=== PATIENT | female | born 1955 | race Caucasian/White ===

== ENCOUNTER → 2017-10-25 | Outpatient (CLI) | payer BC | END | disposition home or self-care (01) | LOC: OIH 13:53 | PROVIDERS: ATTEND Family Medicine | DX: J44.9 Chronic obstructive pulmonary disease, unspecified (principal); M47.895 Other spondylosis, thoracolumbar region | CPT/HCPCS: 71046 ==

== ENCOUNTER → 2021-04-08 | Outpatient (CLI) | payer OTHER | END | disposition home or self-care (01) | LOC: OIH 09:59 | PROVIDERS: ATTEND Family Medicine | DX: R07.81 Pleurodynia (principal) | CPT/HCPCS: 71100 ==

== ENCOUNTER → 2021-11-06 | Outpatient (CLI) | payer MEDICARE ==
[~2021-11-06] MED LIST: REGADENOSON 0.4 MG/5 ML PF SYG IVP SCH
== END | disposition home or self-care (01) ==
LOC: RAH 08:47
PROVIDERS: ATTEND Internal Medicine Interventional Cardiology
DX: I42.0 Dilated cardiomyopathy (principal); R06.02 Shortness of breath
CPT/HCPCS: 78452; 96374; 93017; J2785; A9500 ×2

== ENCOUNTER → 2022-09-09 | Outpatient (CLI) | payer MEDICARE | END | disposition home or self-care (01) | LOC: RAH 13:44 | PROVIDERS: ATTEND Family Medicine | DX: I26.99 Other pulmonary embolism without acute cor pulmonale (principal); J44.9 Chronic obstructive pulmonary disease, unspecified; R06.02 Shortness of breath; Z86.16 Personal history of COVID-19 | CPT/HCPCS: 71250 ==

== ENCOUNTER → 2023-03-01 | Outpatient (CLI) | payer MEDICARE | END | disposition home or self-care (01) | LOC: OIH 10:21 | PROVIDERS: ATTEND Internal Medicine | DX: M48.07 Spinal stenosis, lumbosacral region (principal); M48.56XA Collapsed vertebra, not elsewhere classified, lumbar region, initial encounter for fracture; M47.26 Other spondylosis with radiculopathy, lumbar region; M47.24 Other spondylosis with radiculopathy, thoracic region | CPT/HCPCS: 72070; 72100 ==

== ENCOUNTER → 2024-02-13 | Outpatient (CLI) | payer MEDICARE | END | disposition home or self-care (01) | LOC: RAH 11:34 | PROVIDERS: ATTEND Internal Medicine | DX: M48.55XA Collapsed vertebra, not elsewhere classified, thoracolumbar region, initial encounter for fracture (principal); M47.26 Other spondylosis with radiculopathy, lumbar region | CPT/HCPCS: 72100 ==

== ENCOUNTER → 2024-03-28 | Outpatient (CLI) | payer MEDICARE ==
[2024-03-28 11:40] LABS: CREATININE 0.9 mg/dL (0.5-1.0)
== END | disposition home or self-care (01) ==
LOC: LAB 10:45
PROVIDERS: ATTEND Neuromusculoskeletal Medicine & OMM
DX: S32.000A Wedge compression fracture of unspecified lumbar vertebra, initial encounter for closed fracture (principal); X58.XXXA Exposure to other specified factors, initial encounter; Y93.89 Activity, other specified; Y92.89 Other specified places as the place of occurrence of the external cause; Y99.8 Other external cause status
CPT/HCPCS: 36415; 82565; 84520

== ENCOUNTER → 2024-04-02 | Outpatient (CLI) | payer MEDICARE ==
[~2024-04-02] MED LIST changes: +GADOTERATE MEGLUMINE 10 MMOL/20 ML VIAL IV ONE; -REGADENOSON 0.4 MG/5 ML PF SYG IVP SCH
--- NOTE | 2024-04-02 15:26 | HMCIMG ---
MR SPINAL CANAL, LUMB W/WO CON REASON: S32.000A Wedge compression fracture of unspecified lumbar vertebra, initial COMPARISON: Lumbar spine 02/13/2024 TECHNIQUE: Routine lumbar imaging protocol was performed. Exam was also performed and pre and post gadolinium contrast infusion, 60 cc Clariscan IV. FINDINGS: There is moderate to 20-30% to compression deformity superior endplate of the L2 vertebral body. This appears new since recent radiograph 02/13/2024. There is associated contrast enhancement also consistent with an acute to fracture. There is mild retrograde portion of the posterior superior vertebral body margin but no significant spinal stenosis, AP diameter is between 10 and 11 mm. There are compression deformities at T12, L3 and L4, these are mild in degree. These appear unchanged compared to the radiograph and showed no osseous marrow edema, these are presumed remote. There is some annular bulging at L4-5 along with ligamentum flavum and facet hypertrophic change. AP diameter in the midline is between 7 and 8 mm, narrowing more pronounced in the lateral recesses. Spinal canal is otherwise well preserved. Neural foramina are patent. Surrounding soft tissues appear unremarkable. IMPRESSION: 1. Acute approximately 30% compression deformity superior endplate of the L2 vertebral body with associated contrast enhancement. 2. Stable compression deformities of T12, L3 and L4, no osseous marrow edema or enhancement. 3. Mild spinal stenosis at L4-5, on a degenerative basis, AP diameter the midline between 7 and 8 mm.
== END | disposition home or self-care (01) ==
LOC: RAH 12:50
PROVIDERS: ATTEND Neuromusculoskeletal Medicine & OMM
DX: S32.000A Wedge compression fracture of unspecified lumbar vertebra, initial encounter for closed fracture (principal); M48.061 Spinal stenosis, lumbar region without neurogenic claudication; M47.816 Spondylosis without myelopathy or radiculopathy, lumbar region; M43.8X6 Other specified deforming dorsopathies, lumbar region; M51.369 Other intervertebral disc degeneration, lumbar region without mention of lumbar back pain or lower extremity pain; M43.8X5 Other specified deforming dorsopathies, thoracolumbar region; X58.XXXA Exposure to other specified factors, initial encounter; Y93.89 Activity, other specified; Y92.89 Other specified places as the place of occurrence of the external cause; Y99.8 Other external cause status
CPT/HCPCS: 72158; A9575

== ENCOUNTER → 2024-04-12 | Outpatient (CLI) | payer MEDICARE ==
--- NOTE | 2024-04-12 10:43 | HMCIMG ---
US ABDOMINAL COMPLETE HISTORY: Common bile duct stone COMPARISON: None TECHNIQUE: Multiple transverse and longitudinal ultrasound images of the abdomen were obtained. FINDINGS: Abdominal aorta is not well seen due to overlying bowel gas. Flow is seen in the inferior vena cava. The visualized portion of the pancreas is within normal limits. Liver measures 14 cm. Left intrahepatic duct measures 4 mm which is borderline dilated. No gallstone is seen. Common duct measures 5 mm. No evidence of gallbladder wall thickening is seen. Portal vein is patent. Both kidneys are seen. Right kidney measures 7.8 x 4.2 x 3.2 cm. Left kidney measures 7.5 x 4.7 x 2.7 cm. Both kidneys are small in size. No hydronephrosis is seen of the both kidneys. The spleen is grossly unremarkable. IMPRESSION: 1. No gallstone or ductal dilatation is seen. 2. No hydronephrosis is seen.
== END | disposition home or self-care (01) ==
LOC: RAH 08:32
PROVIDERS: ATTEND Internal Medicine
DX: K80.50 Calculus of bile duct without cholangitis or cholecystitis without obstruction (principal)
CPT/HCPCS: 76700

== ENCOUNTER → 2024-04-17 | Outpatient (CLI) | payer MEDICARE ==
--- NOTE | 2024-04-18 10:26 | HMCIMG ---
NM BONE SCAN WHOLE BODY REASON: compression fx L Spine COMPARISON: MRI scan lumbar spine 04/02/2024 TECHNIQUE: Routine bony scan images were acquired following injection of 23 mCi technetium 99 MDP IV in the left antecubital vein. FINDINGS: There is increased uptake in the L2 vertebral body. This appears consistent with an acute or subacute to compression fracture, corresponding with findings on the MR lumbar spine. There is minimal increased uptake at L4, this also corresponds with a known compression fracture. The remaining compression fractures seen on MR do not demonstrate isotope uptake. There is a single small focal lesion in the right posterolateral fifth rib, nonspecific. There are no other focal areas of uptake in the axial skeleton. There are degenerative changes in the carpometacarpal joints of both wrists. IMPRESSION: 1. Increased uptake in the L2 vertebral body consistent with acute or subacute compression fracture. 2. Mild increased uptake at L4, also corresponding with the known compression fracture. 3. Single focus in the right fifth posterolateral rib, nonspecific, this may be a reflection of focal trauma or contusion. 4. Otherwise negative uptake in the axial skeleton, there are degenerative changes in both wrists.
== END | disposition home or self-care (01) ==
LOC: RAH 12:58
PROVIDERS: ATTEND Neuromusculoskeletal Medicine & OMM
DX: S32.000A Wedge compression fracture of unspecified lumbar vertebra, initial encounter for closed fracture (principal); M19.032 Primary osteoarthritis, left wrist; M19.031 Primary osteoarthritis, right wrist; X58.XXXA Exposure to other specified factors, initial encounter; Y93.89 Activity, other specified; Y92.89 Other specified places as the place of occurrence of the external cause; Y99.8 Other external cause status
CPT/HCPCS: 78306; A9503

== ENCOUNTER → 2024-04-20 | Outpatient (CLI) | payer MEDICARE ==
--- NOTE | 2024-04-20 16:34 | HMCIMG ---
CHEST 2VWS REASON: Chronic obstructive pulmonary disease, unspecified COMPARISON: 09/09/2022 FINDINGS: Two views of the chest were obtained. Lungs are clear. Heart size is normal. There is no pulmonary vascular congestion. Mediastinum and bony thorax appear unremarkable. IMPRESSION: Normal two view chest x-ray.
== END | disposition home or self-care (01) ==
LOC: RAH 15:58
PROVIDERS: ATTEND Internal Medicine
DX: J44.9 Chronic obstructive pulmonary disease, unspecified (principal)
CPT/HCPCS: 71046

== ENCOUNTER → 2024-08-30 | Outpatient (CLI) | payer OTHER ==
--- NOTE | 2024-08-30 16:34 | HMCIMG ---
CT MAXILLOFACIAL W/O CONTRAST HISTORY: Chronic sinusitis COMPARISON: None TECHNIQUE: Multiple sequential high-resolution axial images of the paranasal sinuses were obtained. Postprocessing sagittal and coronal reconstruction images were also obtained. Patient was not given contrast through intravenous route. FINDINGS: Nasal septum is grossly midline. There is no evidence of mucoperiosteal thickening involving the paranasal sinuses. The infundibula are patent bilaterally. No acute displaced fracture is seen. There is no evidence of air-fluid level in the paranasal sinuses. Parapharyngeal fat planes are preserved bilaterally. IMPRESSION: 1. No acute displaced fracture is seen. CT was performed with one or more following dose reduction techniques: automated exposure control, adjustment of the mA and kv according to patient's size, or use of a iterative reconstruction technique.
== END | disposition home or self-care (01) ==
LOC: RAH 14:31
PROVIDERS: ATTEND Internal Medicine
DX: J32.9 Chronic sinusitis, unspecified (principal)
CPT/HCPCS: 70486